=== PATIENT | female | born 1980 | race Caucasian/White ===

== ENCOUNTER 2016-08-03 10:00 | Inpatient (IN) | payer OTHER ==
[2016-08-03 10:43] VITALS: BMI 24.9
--- NOTE | 2016-08-03 10:45 | HP ---
Past Medical History - Admission History of Present Illness: 36 yo @ 39 0/7 wks by first trimester ultrasound, EDC 08/10/2016 complicated by: 1. History of Asthma Patient presents with chief complaint of contractions which began at 0200 but increased in in frequency and intensity at approximately 0700. She reports movement, denies leakage of fluid, vaginal bleeding. History Source: Patient - Past Medical History Cardiovascular: No: HTN Pulmonary: Yes: Asthma ...: 3 ...Para: 2 ... Weeks Gestation by Dates: 39.2 ...EDC by Dates: 08/08/16 ...EDC by Sono: 08/10/16 Heme/Onc: No: Anemia - Past Surgical History Hx Myomectomy: No Hx Transabdominal Cerclage: No Additional Surgical History: Breast implants - Alcohol/Substance Use Hx Alcohol Use: No History of Substance Use: reports: None Home Medications - Allergies Allergies/Adverse Reactions: Allergies Allergy/AdvReac Type Severity Reaction Status Date / Time No Known Allergies Allergy Verified 08/03/16 10:39 Family Disease History - Family Disease History Family History: Denies Review of Systems - Review of Systems Constitutional: reports: No Symptoms Cardiovascular: reports: No Symptoms Respiratory: reports: No Symptoms Gastrointestinal: reports: No Symptoms Musculoskeletal: reports: No Symptoms Integumentary: reports: No Symptoms Neurological: reports: No Symptoms Endocrine: reports: No Symptoms Hematology/Lymphatic: reports: No Symptoms Physical Exam - Maternity Constitutional: Yes: Well Nourished, No Distress, Calm Neck: Yes: Supple Cardiovascular: Yes: Regular Rate and Rhythm Lungs: Clear to auscultation - Abdominal Exam/OB Fundal Height: 40 Number of Fetuses: Single Presentation: Vertex Contractions: Yes Regularity: Regular Intensity: Mod/Strong Monitor Mode: External Heart Rate (range): 135 Category: I Accelerations: Non-Uniform Decelerations: None - Vaginal Exam/OB Vaginal Bleediing: No Dilatation (cm): 5 Effacement (%): 90 Amniotic Membrane Status: Intact Presentation: Vertex/Position Station: -2 - Physical Exam Edema: No Psychiatric: Yes: Alert, Oriented - Labs Lab Results: PNL: O negative; HBS Ag negative, HIV negative; GBS negative; RPR NR; GC/CG negative Hemorrhage Risk Assessment - Risk Factors Medium Risk Factors: Yes: None High Risk Factors: Yes: None Risk Score: 1 Risk Level: Medium Risk Assessment/Plan 36 yo @ 39 0/7 wks, active labor 1. Admit to L&D Consents reviewed and signed 2. Admission labs ordered 3. Rh negative, will order rhogam according to protocol 4. GBS negative 5. Patient desires epidural for pain control 6. Will continue expectant management. Anticipate vaginal delivery
[2016-08-03 10:53] LABS: BASOPHIL 0.3 % (0-2.0); EOSINOPHIL 2.5 % (0-4.5); MCH 30.1 pg (25.7-33.7); MCHC 32.8 g/dl (32.0-36.0); MEAN CELL VOLUME 91.9 fl (80-96); MEAN PLT VOLUME 8.8 fl (7.5-11.1); NEUTROPHILS 80.6 % (42.8-82.8); PLATELET COUNT 194 K/MM3 (134-434); RDW 13.5 % (11.6-15.6)
[2016-08-03 11:04] LABS: INR 0.97 (0.82-1.09); PROTHROMBIN TIME (PATIENT) 10.7 SEC (9.98-11.88)
[2016-08-03 11:06] LABS: ACTIVATED PTT 29.6 SECONDS (26.9-34.4)
[2016-08-03] MEDS ORDERED: ELECTROLYTE-148 SOLN 1,000 ML IV SCH (11:15)
[2016-08-03 11:17] LABS: CALCIUM 8.8 mg/dL (8.5-10.1); COCKROFT - GAULT 164.6025; CREATININE 0.5 mg/dL (0.55-1.02)
[2016-08-03] MEDS ORDERED: TUBERCULIN PPD 5 TU/0.1ML SYRINGE (IN PATIENT USE ONLY) ID ONE (12:30)
[2016-08-03] MEDS ORDERED: FENTANYL/BUPIVACAINE/NS/PF - PCEA - 50 ML DISP.SYRIN EP SCH (12:30)
[2016-08-03] MEDS ORDERED: BENZOCAINE 28 GM HEMORRHOIDAL OINTMENT TP PRN (18:02)
[2016-08-03] MEDS ORDERED: METHYLERGONOVINE MALEATE 0.2 MG/1 ML AMP IM PRN (18:02)
[2016-08-03] MEDS ORDERED: WITCH HAZEL 50% (TUCKS) 40 PAD/JAR PAD TP PRN (18:02)
[2016-08-03] MEDS ORDERED: BENZOCAINE 20% 57 GM BOTTLE TP PRN (18:02)
[2016-08-03] MEDS ORDERED: BISACODYL 10 MG SUPP.RECT RC PRN (18:02)
[2016-08-03] MEDS ORDERED: OXYTOCIN 20 UNITS in 0.9% NS 1,000 ML IV SCH ×2 (18:15→20:30)
--- NOTE | 2016-08-03 18:44 | PN ---
Delivery - Delivery Vaginal Delivery: No Problems, Spontaneous Type of Anesthesia: Epidural Episiotomy/Laceration: None EBL (cc): 300 Delivery, Single - Stages of Labor Date 1st Stage Initiatied: 08/03/16 Time 1st Stage Initiated: 07:00 Date 2nd Stage Initiated: 08/03/16 Time 2nd Stage Initiated: 17:18 Date of Delivery: 08/03/16 Time of Delivery: 17:51 Time Placenta Delivered: 17:55 - Condition of Adzing And Boring Machine Feeder/Cake Stripper Present: No Infant Gender: Female Position: OA Total Hours ROM (Hrs/Mins): 0hrs 27min - 1 Minute Total Score: 9 5 Minutes Total Score: 9 - Feeding Plan Initial Plan: Elected not to breastfeed exclusively throughout hospitalization Benefits of Exclusively reinforced: Yes Remarks - Remarks Remarks: Normal labor and delivery
[2016-08-04] MEDS: IBUPROFEN 600 MG TABLET (FP) PO PRN ×2 (00:15→11:46)
[2016-08-04] MEDS: ACETAMINOPHEN 325 MG TABLET (FP) PO PRN ×2 (00:15→11:45)
--- NOTE | 2016-08-04 08:22 | PN ---
Post Progress Note - Subjective Subjective: 36 yo P3 now s/p no complains, voiding, ambulating, tolerating regular diet Post Day: 1 Type of Delivery: Vital Signs: Vital Signs Temperature 97.6 F 08/04/16 06:00 Pulse Rate 73 08/04/16 06:00 Respiratory Rate 18 08/04/16 06:00 Blood Pressure 116/71 08/04/16 06:00 O2 Sat by Pulse Oximetry (%) 100 08/03/16 18:45 Breast Exam: Yes: Soft Uterus: Yes: Fundus Firm, Fundus @ umbilicus Abdomen/GI: Yes: Abdomen soft Lochia: Yes: Rubra Lochia, amount: Small Extremities: Yes: Calves non-tender Activity: Ambulating - Labs Labs: CBC WBC 11.0 K/mm3 (4.0-10.0) H 08/03/16 10:35 RBC 4.07 M/mm3 (3.60-5.2) 08/03/16 10:35 Hgb 12.2 GM/dL (10.7-15.3) 08/03/16 10:35 Hct 37.4 % (32.4-45.2) 08/03/16 10:35 MCV 91.9 fl (80-96) 08/03/16 10:35 MCHC 32.8 g/dl (32.0-36.0) 08/03/16 10:35 RDW 13.5 % (11.6-15.6) 08/03/16 10:35 Plt Count 194 K/MM3 (134-434) 08/03/16 10:35 MPV 8.8 fl (7.5-11.1) 08/03/16 10:35 Neutrophils % 80.6 % (42.8-82.8) 08/03/16 10:35 Lymphocytes % 9.9 % (8-40) 08/03/16 10:35 Monocytes % 6.7 % (3.8-10.2) 08/03/16 10:35 Eosinophils % 2.5 % (0-4.5) 08/03/16 10:35 Basophils % 0.3 % (0-2.0) 08/03/16 10:35 Assessment/Plan 36 yo P3 PPD # 1 VSS, Afibrile Rh neg, screen pending CBC pending Breast feeding Doing well, continue routine PP care Unsure about control preference Plan to d/c 08/05/16
[2016-08-04 08:29] LABS: BASOPHIL 0.3 % (0-2.0); EOSINOPHIL 1.8 % (0-4.5); MCH 30.6 pg (25.7-33.7); MCHC 33.1 g/dl (32.0-36.0); MEAN CELL VOLUME 92.6 fl (80-96); MEAN PLT VOLUME 9.5 fl (7.5-11.1); PLATELET COUNT 157 K/MM3 (134-434); WHITE BLOOD COUNT 13.8 K/mm3 (4.0-10.0)
[2016-08-04] MEDS: PRENATAL VITAMINS W/ FOLIC ACID TABLET (FP) PO SCH (09:25)
[2016-08-04] MEDS: AMOX TR/POT CLAV 875MG/125MG TABLETS (FP) PO SCH (17:21)
[2016-08-04] MEDS ORDERED: SENNOSIDES/DOCUSATE COMBO (SENNA PLUS) TABLET (UD) PO PRN (22:00)
[2016-08-05] MEDS: ACETAMINOPHEN 325 MG TABLET (FP) PO PRN (00:09)
[2016-08-05] MEDS: IBUPROFEN 600 MG TABLET (FP) PO PRN (00:10)
[2016-08-05 08:16] VITALS: BP 106/70; PULSE 78; TEMP 97.6
[2016-08-05] MEDS: AMOX TR/POT CLAV 875MG/125MG TABLETS (FP) PO SCH ×2 (08:20→16:58)
[2016-08-05] MEDS: PRENATAL VITAMINS W/ FOLIC ACID TABLET (FP) PO SCH (09:24)
--- NOTE | 2016-08-05 16:04 | PN ---
Post Progress Note - Subjective Subjective: Pt is c/o cough that is occasionally productive of white phlegm. No fever, no hemoptysis. She has been taking PO abx since prior to labor but still has the sx 's Post Day: 2 Type of Delivery: Vital Signs: Vital Signs Temperature 97.6 F 08/05/16 08:15 Pulse Rate 78 08/05/16 08:15 Respiratory Rate 20 08/05/16 08:15 Blood Pressure 106/70 08/05/16 08:15 O2 Sat by Pulse Oximetry (%) 100 08/03/16 18:45 Breast Exam: Yes: Soft, Engorged Uterus: Yes: Fundus Firm, Fundus below umbilicus Abdomen/GI: Yes: Abdomen soft, Passing flatus, Tolerating PO Lochia: Yes: Rubra Lochia, amount: Small Extremities: Yes: Calves non-tender Perineum: Yes: Intact Activity: Ambulating - Labs Labs: CBC WBC 13.8 K/mm3 (4.0-10.0) H 08/04/16 07:45 RBC 3.60 M/mm3 (3.60-5.2) 08/04/16 07:45 Hgb 11.0 GM/dL (10.7-15.3) 08/04/16 07:45 Hct 33.4 % (32.4-45.2) 08/04/16 07:45 MCV 92.6 fl (80-96) 08/04/16 07:45 MCHC 33.1 g/dl (32.0-36.0) 08/04/16 07:45 RDW 14.0 % (11.6-15.6) 08/04/16 07:45 Plt Count 157 K/MM3 (134-434) 08/04/16 07:45 MPV 9.5 fl (7.5-11.1) 08/04/16 07:45 Neutrophils % 82.0 % (42.8-82.8) 08/04/16 07:45 Lymphocytes % 10.1 % (8-40) 08/04/16 07:45 Monocytes % 5.8 % (3.8-10.2) 08/04/16 07:45 Eosinophils % 1.8 % (0-4.5) 08/04/16 07:45 Basophils % 0.3 % (0-2.0) 08/04/16 07:45 Other Findings, Remarks: LUNGS: CTAb/l, course BS bilaterally Assessment/Plan 36yo P3 s/p , doing well stable, afebrile. care instructions reviewed. Continue routine care. Ambulation encouraged Pt with cough that has been present since before labor. CXR ordered to r/o pneumonia. Discharge instruction reviewed.
== END 2016-08-05 20:00 | disposition home or self-care (01) | DRG 560 ==
LOC: JLDR 10:00 → J3W 20:37
PROVIDERS: ADMIT Obstetrics & Gynecology; ATTEND Obstetrics & Gynecology
PROC: 10E0XZZ Delivery of Products of Conception, External Approach (ICD-10-PCS; principal; 2016-08-03)
PROC: 30233S1 Transfusion of Nonautologous Globulin into Peripheral Vein, Percutaneous Approach (ICD-10-PCS; 2016-08-04)
DX: O80 Encounter for full-term uncomplicated delivery (principal); Z3A.39 39 weeks gestation of pregnancy; Z37.0 Single live birth
CPT/HCPCS: 36415; 59409; 71020-TC; 80048; 85025; 85461; 85610; 85730; 86593; 86850; 86870; 86900; 86901; 86902; 86999